=== PATIENT | male | born 1985 | race Caucasian/White ===

== ENCOUNTER 2017-06-25 10:41 | Emergency (ER) | payer SELFPAY ==
[~2017-06-25] VITALS: Ht 190.5 cm; Wt 99.3 kg
[2017-06-25] MEDS ORDERED: NAPROXEN500 MG PO (14:07)
[2017-06-25] MEDS ORDERED: FLEXERIL10 MG PO (14:07)
[2017-06-25 14:29] VITALS: BP 150/86
== END 2017-06-25 14:29 | disposition home or self-care (01) ==
LOC: EME 10:41
DX: S16.1XXA Strain of muscle, fascia and tendon at neck level, initial encounter (principal); V49.40XA Driver injured in collision with unspecified motor vehicles in traffic accident, initial encounter; Y92.411 Interstate highway as the place of occurrence of the external cause
CPT/HCPCS: 72070; 72100; 72125; 99281; 99282